=== PATIENT | male | born 1955 | race Caucasian/White ===

== ENCOUNTER 2016-09-13 00:09 | Day surgery (SDC) | payer OTHER ==
[~2016-09-13] VITALS: Ht 157.5 cm; Wt 65.0 kg
[~2016-09-13 00:09] MED LIST: AMIO100T4 PO; ASCO-294 PO; CALC600T12 PO; CARV25TA PO; CHOL200047 PO; CRES20T PO; DABI150C PO; FURO40TA4 PO; GABA800T2 PO; HYDR-3605 PO; IBUP-1827 PO; INSU100V7 SUBQ; IRON15TA3 PO; LACT1CAP73 PO; LEVO88TA4 PO; LISI10TA PO; METF500T4 PO; PANT20TA2 PO
[2016-09-13] MEDS ORDERED: Propofol 10 mg/mL 20 mL Inj ONE (00:10)
[2016-09-13] MEDS ORDERED: Lactated Ringer's 1,000 ML IV ONE (06:00)
[2016-09-13 08:43] VITALS: BP 142/86; PULSE 88; RESP 16; O2SAT 94
[2016-09-13] MEDS ORDERED: TRAZ-115 PO (08:49)
[2016-09-13] MEDS ORDERED: ALBU1.25 INHALATION (08:49)
[2016-09-13] MEDS ORDERED: TIOT18CA3 IH (08:49)
[2016-09-13] MEDS ORDERED: ALBU8.5H2 INHALATION (08:49)
[2016-09-13] MEDS ORDERED: TRAM100T28 PO (08:49)
[2016-09-13] MEDS ORDERED: IPRA4AER IH (08:49)
[2016-09-13] MEDS ORDERED: HYDR12.55 PO (08:49)
[2016-09-13] MEDS ORDERED: LIP40 PO (08:49)
[2016-09-13] MEDS ORDERED: Lactated Ringer's 1,000 ML IV SCH (09:07)
--- NOTE | 2016-09-13 09:07 | PCM.HPANE ---
Patient Data Date of Service: Sep 13, 2016 Surgeon Admitting Provider: Attending Provider:Yoshi Bauer MD Primary Care Physician:Dick Funk MD Other Provider:Rashawn Vargas Anesthesia Reason for Visit Colon Ca Screen/Gerd Ht/WT & BMI Height (Feet): 5 Height (Inches): 2 Weight (Kilograms): 65 Body Mass Index 26.00 Allergies Coded Allergies: Penicillins (Verified Allergy, Unknown, 09/12/16) Past Anesthesia History Anesthesia History: Denies:: Abnormal Airway, Anesthesia Reactions, Difficult Intubation, Malignant Hyperthermia Diabetes History Hx Diabetes?: No MRSA MRSA: No Medications Reported Medications Trazodone 50 Mg Toruat60 Mg PO HS Ref 0 09/13/16 Tramadol ER 100 Mg Tbmp.12tf891 Mg PO HS Ref 0 09/13/16 Tiotropium [employer] (Spiriva)18 Mcg Cap.w.dev18 Mcg IH DAILY #1 PKG Ref 0 09/13/16 Albuterol/Ipratropium (Combivent Respimat Inhal [place])120 Spr/4 Gm Inhaler1 Puff IH QID #1 INH Ref 0 09/13/16 Hydrochlorothiazide 12.5 Mg Jnlmft26.5 Mg PO DAILY 30 Days Ref 0 09/13/16 Atorvastatin (Lipitor)40 Mg Gqjqpv17 Mg PO DAILY Ref 0 09/13/16 Albuterol HFA (Proair HFA)8.5 Gm Hfa.aer.ad2 Puffs INHALATION Q4H #1 INHALER 09/13/16 Albuterol Neb Soln 1.25 Mg/3 Ml Vial.neb1.25 Mg INHALATION Q4H PRN For Shortness of Breath Ref 0 09/13/16 Discontinued Reported Medications Cholecalciferol (Vitamin D3) (Vitamin D3)2,000 Unit Capsule2,000 Unit PO BID 09/12/16 Ascorbate Calcium (Vitamin C)500 Mg Fzawjw443 Mg PO DAILY 09/12/16 Lactobacillus Combo No.11 (Probiotic)1 Each Cap.sprink1 Each PO DAILY 09/12/16 Dabigatran Etexilate Mesylate (Pradaxa)150 Mg Rsbvtkf866 Mg PO BID 30 Days 09/12/[address] 20 Mg Tablet.dr20 Mg PO DAILY Ref 0 09/12/16 Metformin 500 Mg Wladfo261 Mg PO DAILY Ref 0 09/12/16 Lisinopril 10 Mg Dyjcww42 Mg PO DAILY 30 Days Ref 0 09/12/16 Levothyroxine 88 Mcg Kxwuoj93 Mcg PO DAILY Ref 0 09/12/16 Insulin Glargine (Lantus U100 Insulin Vial)100 Unit/Ml Vial26 Unit SUBQ HS #1 VIAL Ref 0 09/12/16 Iron,Carbonyl (Iron Chews)15 Mg Tab.chew15 Mg PO 09/12/16 Ibuprofen 600 Mg Xaskij421 Mg PO BID PRN For Pain Ref 0 09/12/16 HydrOXYzine HCl 10 Mg Jcgakq57 Mg PO TID PRN For Itching Ref 0 09/12/16 Gabapentin 800 Mg Jzihas327 Mg PO QID Ref 0 09/12/16 Furosemide 40 Mg Zkcnwx86 Mg PO BID 09/12/16 Rosuvastatin Calcium (Crestor)20 Mg Vpjihx85 Mg PO DAILY 30 Days Ref 0 09/12/16 Carvedilol (Coreg)25 Mg Lglqto03 Mg PO DAILY Ref 0 09/12/16 Calcium Carbonate (Calcium)600 Mg Tablet1,250 Mg PO 09/12/16 Amiodarone 100 Mg Bbuusa264 Mg PO DAILY Ref 0 09/12/16 Tramadol 50 Mg Mwzsdj84 Mg PO HS PRN For Pain Ref 0 09/12/16 Tamsulosin (Flomax)0.4 Mg Capsule0.4 Mg PO DAILY Ref 0 09/12/16 Tiotropium [employer] (Spiriva)18 Mcg Cap.w.dev18 Mcg IH DAILY #1 PKG Ref 0 09/12/16 Albuterol HFA (Proair HFA)8.5 Gm Hfa.aer.ad2 Puffs INHALATION Q4H #1 INHALER 09/12/16 Trazodone 50 Mg Tfkhld41 Mg PO HS Ref 0 07/10/16 Guaifenesin/Pseudoephedrne HCl (Respaire-30 Capsule)1 Each Capsule1 Each PO 07/10/16 Albuterol Neb Soln 1.25 Mg/3 Ml Vial.neb1.25 Mg INHALATION Q4H PRN For Cough Ref 0 07/10/16 Hydrochlorothiazide 12.5 Mg Egjqlcc35 Mg PO DAILY 30 Days Ref 0 07/10/16 Atorvastatin (Lipitor)40 Mg Fmdwsf54 Mg PO DAILY Ref 0 07/10/16 History History of ENT Problems?: No HEENT History: Positive for:: Dysphagia Hearing Problem Denies:: Abnormal Airway Difficult Intubation Denture Type: None Teeth Condition: Missing Teeth Hx of Heart Problems?: Yes Cardiovascular History: Positive for:: Hypertension Denies:: AICD Atrial Fibrillation Chest Pain Pacemaker Valvular Heart Disease Hx of Respiratory Problem?: Yes Respiratory History: Positive for:: Asthma COPD Emphysema Hx Neurologic Problems?: No Neurological History: Denies:: CVA Hx of GI Problems?: Yes Hx of Problems?: No Hx Musculoskeletal Problems?: No Musculoskeletal History: Denies:: Fibromyalgia Joint Replacement Hx of Psycho/Social Problems?: No Psycho Social History: Positive for:: Anxiety Hx Depression Hx Surgeries?: Yes ((L)&(R) Knee, (L) Shoulder, (L) Jaw, (L) ANKLE) Hx Any Other Health Problems?: Yes Hx Diabetes: No Hx Alcohol Use: Yes (beer, LIQUOR) Smoking Status: Current Every Day Smoker Have You Smoked inLast 12 mo: Yes Stop/Bang Treated for Sleep Apnea?: No Do You Have a CPAP Machine?: No S-Snoring: Do You Snore Loudly: Yes T-Tired: feel tired, fatigued: Yes P-Blood Pressure: treated: Yes B- Body Mass Index > 35 kg/m2: No A- Age over 50: Yes N- Neck Large Circumference: No G- Gender Male: Yes IVIS Category 2: Yes Risk Assessment Category Category 1A: Patient has history of documented sleep apnea, and HAS NOT received any narcotic, sedative or anesthesia administration during this stay. Category 1B: Patient has history of documented sleep apnea, and HAS received any narcotic , sedative or anesthesia administration during this stay Category 2: Patient has SUSPECTED Obstructive Sleep Apnea, and HAS received any narcotic , sedative or anesthesia administration during this stay. Category 3: Patient has SUSPECTED Obstructive Sleep Apnea and HAS NOT received narcotic, sedative or anesthesia administration during this stay. Category 4: Outpatient in Procedural Areas with known sleep apnea or who screen positive for High Risk via the STOP/BANG questionnaire. Exam Exam Vital Signs Vital Signs Date Time Temp Pulse Resp B/P Pulse Ox O2 Delivery O2 Flow Rate FiO2 09/13/16 08:43 36.9 88 16 142/86 94 Room Air General Appearance: Alert, Oriented X3, Cooperative HEENT/AIRWAY: MP 2 Lungs: Normal Air Movement Heart: Exam Unremarkable Plan Impression Patient chart reviewed, patient interviewed and anesthestic plan with risks, benefits, and alternatives discussed, and informed consent obtained. ASA Physical Status: ASA2 Mod Systemic Disease Anesthetic Plan: MAC Bene/Risks/Altern/Consents: Yes HP Complete Prior to Induction: Yes Sarkis Lara MD Sep 13, 2016 09:07
[2016-09-13] MEDS ORDERED: Ondansetron 2 mg/mL 2 mL Inj IVPUSH PRN (09:10)
[2016-09-13] MEDS ORDERED: MetoCLOpramide 5 mg/mL 2 mL Inj IVPUSH PRN (09:10)
[2016-09-13 10:02] VITALS: BP 122/78; PULSE 82; RESP 14; O2SAT 95
--- NOTE | 2016-09-13 10:11 | PCM.ANEP1 ---
Post Anesthesia PACU Phase 1 Assessment Date of Service: Sep 13, 2016 Vital Signs Vital Signs Date Time Temp Pulse Resp B/P Pulse Ox O2 Delivery O2 Flow Rate FiO2 09/13/16 10:02 82 14 122/78 95 Room Air 09/13/16 08:43 36.9 88 16 142/86 94 Room Air Anesthetic Administered: MAC Level of Alertness: Awake, talking CHAN's with Equal Strength: Yes Pain: No Nausea or Vomiting: No CV Function & Hydration Stable: Yes Airway Device: Oxygen Delivery: Room Air Lungs: Normal Air Movement Dermatome Level: Full Sensation PACU Phase 2 Assessment Complications: No Follow up Care: N/A Patient Instructions Provided: N/A Sarkis Lara MD Sep 13, 2016 10:11
[2016-09-13 10:12] VITALS: BP 119/73; PULSE 78; O2SAT 95
[2016-09-13 10:22] VITALS: BP 129/80; PULSE 79; RESP 16; O2SAT 97
--- NOTE | 2016-09-13 11:08 | ENDO ---
[address] [address] ENDOSCOPY PROCEDURE PATIENT: NICANOR ODONNELL : 1955 MR#: [id number] ADMIT: 09/13/2016 JOB ID: [id number] DATE: 09/13/2016 TYPE OF OPERATION: Esophagogastroduodenoscopy with biopsy and colonoscopy with hot snare polypectomy and biopsy. PREOPERATIVE DIAGNOSIS(ES): Gastroesophageal reflux disease and constipation. POSTOPERATIVE DIAGNOSIS(ES): 1. Widely open, patent Schatzki ring. 2. Nonerosive gastritis. 3. Multiple duodenal ulcers clean based, nonbleeding, largest size 5 mm in the first portion of duodenum. 4. Tortuous sigmoid colon. 5. There were two sigmoid polyps, measuring 1 cm in size status post hot snare polypectomy. 6. There were two rectal polyps removed by cold biopsy forceps, one of them, and the other one was with snare polypectomy. 7. There were two ascending colon polyps, one measuring 1 cm and the other one measuring 4 cm removed by hot snare polypectomy with multiple post polypectomy clips placed and tattoo GI spot placed. ANESTHESIA: Monitored anesthesia care. COMPLICATIONS: None. BLOOD LOSS: Minimal. DESCRIPTION OF PROCEDURE: After risks and benefits were explained to the patient, informed consent was obtained. After anesthesia administered, the upper endoscope was then inserted into mouth intubating to the esophagus, stomach, second portion of duodenum. Mucosa carefully examined. After procedure was done, the scope withdrawn and procedure terminated. A colonoscope was then inserted from the rectum to the cecum. Mucosa carefully examined. Prep of the patient was excellent. After the procedure was done, the scope was withdrawn and the procedure terminated. FINDINGS: Upon inspection of the esophagus, no masses, ulcers that were seen. Throughout the entire examination, there was a widely open, patent Schatzki ring and distal esophagus. Z-line located at 40 cm from the incisors. Upon entering the stomach, there was mild nonerosive gastritis that was seen. There were no masses or ulcers seen. Retroflexion was normal. Duodenal bulb was normal but the first portion, multiple ulcers, clean based, nonbleeding measuring 5 mm in size. The rest of the duodenum as well as second portion was normal. Biopsies were taken of the duodenal ulcer, antrum and body and distal esophagus. Upon inspection of the anus, no masses, hemorrhoids, ulcers, fissures that were seen. Throughout the entire examination, there were two polyps seen in the rectum. One was removed by cold biopsy. The other one was removed by hot snare polypectomy. There were also two sigmoid polyps seen, both removed by hot snare polypectomy, both measuring 1 cm in size. Two ascending colon polyps, one of them measuring 1 cm and the other one measuring 4 cm removed by hot snare polypectomy and a post polypectomy clips were placed with GI spot tattoo. Retroflexion was normal. IMPRESSIONS: 1. Widely open, patent Schatzki ring. 2. Mild nonerosive gastritis. 3. Multiple duodenal ulcers in the first portion, largest size clean based, nonbleeding, 5 mm status post biopsy. 4. Tortuous sigmoid colon. 5. Two rectal polyps, one removed by cold biopsy forceps, the other one removed by hot snare polypectomy. 6. Two sigmoid polyps removed by hot snare polypectomy, each measured 1 cm in size. 7. Two ascending colon polyps with gastrointestinal spot tattoo placed at post polypectomy clips were placed, one measuring 1 cm, the other one measuring 4 cm. 8. Ascending colon diverticulosis. RECOMMENDATIONS: 1. High-fiber diet. 2. Await pathology results. 3. Protonix 40 mg by mouth twice a day. 4. Carafate 1 g by mouth four times a day. 5. Repeat colonoscopy in six months given the extent of these polyps. 6. Followup in GI clinic with referring provider.
--- NOTE | 2016-09-14 14:49 | PATH ---
SURGICAL PATHOLOGY Attending Physician:Yoshi Bauer MD CASE STATUS: Signed Out PATIENT NAME: NICANOR ODONNELL PID: [id number] : 1955 DATE COLLECTED:09/13/2016 16:34 SPECIMEN: 1: Duodenum, Biopsy 2: Stomach, Antrum, Biopsy 3: Gastric, Biopsy 4: Esophagus, Biopsy 5: Duodenum, Biopsy 6: Colon, Polyp 7: Colon, Polyp 8: Colon, Polyp 9: Rectum, Biopsy CLINICAL HISTORY: ABDOMINAL PAIN, ULCER POLYP R/O H.PYLORI 1. DUODENUM BIOPSY 2. ANTRUM BIOPSY 3. GASTRIC BODY BIOPSY 4. DISTAL ESOPHAGUS BIOPSY 5. 1 ST PORTION DUODENUM ULCER 6. ASCENDING COLON POLYP 7. SIGMOID COLON POLYP #1 8. SIGMOID COLON POLYP #2 9. RECTAL POLYP FINAL DIAGNOSIS: 1.DUODENUM BIOPSY: FOCAL CHRONIC DUODENITIS. Negative for evidence of celiac disease. Negative for dysplasia and malignancy. 2.GASTRIC ANTRUM BIOPSY: MODERATE CHRONIC ACTIVE GASTRITIS INVOLVING ANTRAL MUCOSA. Immunohistochemistry for Helicobacter pylori pending, to be reported by addendum. Negative for intestinal metaplasia. Negative for dysplasia and malignancy. 3.GASTRIC BODY BIOPSY: MILD CHRONIC GASTRITIS INVOLVING FUNDIC MUCOSA. Immunohistochemistry for Helicobacter pylori pending, to be reported by addendum. Negative for intestinal metaplasia. Negative for dysplasia and malignancy. 4.DISTAL ESOPHAGUS BIOPSY: SQUAMOUS MUCOSA AND GASTRIC CARDIA-TYPE MUCOSA WITH CHRONIC INFLAMMATION AND REACTIVE EPITHELIAL CHANGES. Negative for specialized metaplasia of Corrales' s-type esophagus. Negative for dysplasia and malignancy. Negative for squamous intraepithelial eosinophils. 5.FIRST PORTION OF DUODENUM ULCER BIOPSY: CHRONIC ACTIVE DUODENITIS WITH FOVEOLAR METAPLASIA AND MUCOSAL EROSION. Negative for evidence of celiac disease. Negative for dysplasia and malignancy. 6.ASCENDING COLON POLYP: TUBULAR ADENOMA INVOLVING THREE BIOPSY FRAGMENTS. POLYPOID TUBULAR ADENOMA INVOLVING SINGLE BIOPSY FRAGMENT. POLYPOID MIXED TUBULAR AND VILLIFORM ADENOMA INVOLVING SINGLE BIOPSY FRAGMENT. 7.SIGMOID COLON POLYP: MIXED TUBULAR AND VILLIFORM ADENOMA. 8.SIGMOID COLON POLYP: POLYPOID TUBULAR ADENOMA. 9.RECTAL POLYP: TUBULAR ADENOMA. ICD10 K29.70 GROSS DESCRIPTION: The specimen is received in nine formalin filled containers labeled with the patient's name. 1). The specimen is sublabeled "duodenum" and consists of a 0.3 x 0.2 x 0.2 CM portion of tissue which is entirely submitted in cassette 1A. 2). The specimen is sublabeled "antrum" and consists of a 0.3 x 0.2 x 0.2 CM portion of tissue which is entirely submitted in cassette 2A. 3). The specimen is sublabeled "gastric" and consists of 2 portions of tissue which aggregate to 0.4 x 0.3 x 0.2 CM. The specimen is entirely submitted in cassette 3A. 4). The specimen is sublabeled "distal esophagus" and consists of 2 portions of tissue which aggregate to 0.3 x 0.3 x 0.2 CM. The specimen is entirely submitted in cassette 4A. 5). The specimen is sublabeled "first portion duodenum ulcer" and consists of 2 extremely tiny portions of tissue which aggregate to less than 0.1 CM in greatest dimension. Specimen is entirely submitted in cassette 5A. 6). The specimen is sublabeled "ascending colon polyps" and consists of 5 portions of tissue which aggregate to 1.4 x 1.2 x 1.0 CM. The 3 smallest pieces are entirely submitted in cassettes 6A. The next piece is trisected and entirely submitted in 6B. And the largest piece is trisected and totally submitted in 6 C. 7). The specimen is sublabeled "sigmoid colon polyp #1" and consists of 3 portions of tissue which aggregate to 0.6 x 0.6-0.6 CM. The specimen is entirely submitted in cassette 7A. 8). The specimen is sublabeled "sigmoid colon polyp #2" and consists of a 0.5 x 0.5 x 0.4 CM portion of tissue which is entirely submitted in cassette 8A. 9). The specimen is sublabeled "rectal polyp" and consists of one portion of tissue which measures 0.5 x 0.2 x 0.2 CM. The specimen is entirely submitted in cassette 9A. 09/13/2016 [facility] MICRO DESCRIPTION: See diagnosis. ICD-9 CODES: CPT CODES: 1: 10546 2: 04317, 61661 3: 12392, 82724 4: 43018 5: 14615 6: 23312 7: 16461 8: 54333 9: 76524 PROCEDURE/ADDENDA: Immunohistochemistry SPI Interpretation {Not Entered} Results-Comments Immunohistochemistry results: 2.ANTRUM BIOPSY: POSITIVE FOR HELICOBACTER PYLORI BY IMMUNOHISTOCHEMISTRY. 3.GASTRIC BODY BIOPSY: NEGATIVE FOR HELICOBACTER PYLORI BY IMMUNOHISTOCHEMISTRY. This test was developed and its performance characteristics determined by [employer]. It has not been cleared or approved by the [place]. [place]. Food and Drug Administration. The FDA has determined that such clearance or approval is not necessary. This test is used for clinical purposes. It should not be regarded as investigational or for research. Electronically Signed Out Nasim Bearden MD Electronically Signed Out Nasim Bearden MD [facility] Pathology [facility] [address], [place] [address] Technical component performed at [facility], [address], [place], [address]
== END 2016-09-13 23:59 | disposition home or self-care (01) ==
LOC: END 00:09
PROVIDERS: ATTEND Internal Medicine Gastroenterology
DX: Z12.11 Encounter for screening for malignant neoplasm of colon (principal); D12.2 Benign neoplasm of ascending colon; D12.5 Benign neoplasm of sigmoid colon; D12.8 Benign neoplasm of rectum; K29.50 Unspecified chronic gastritis without bleeding; K29.80 Duodenitis without bleeding; A04.8 Other specified bacterial intestinal infections; K21.9 Gastro-esophageal reflux disease without esophagitis; D75.1 Secondary polycythemia; J44.9 Chronic obstructive pulmonary disease, unspecified; F17.210 Nicotine dependence, cigarettes, uncomplicated; I10 Essential (primary) hypertension; E78.5 Hyperlipidemia, unspecified; G47.00 Insomnia, unspecified; G89.4 Chronic pain syndrome; Z79.51 Long term (current) use of inhaled steroids
CPT/HCPCS: 43239; 45380; 45381; 45385; J2250; J7120